=== PATIENT | male | born 1960 | race African-American/Black ===

== ENCOUNTER 2020-03-26 21:30 | Inpatient (IN) | payer SELFPAY ==
[2020-03-26] MEDS ORDERED: Vancomycin 1 GM/200 ML BAG ONE (21:52)
[2020-03-26 22:30] LABS: ALT (SGPT) 16 U/L (8-55); AST (SGOT) 26 U/L (5-34); Albumin 3.4 g/dL (3.5-5.0); Alkaline Phosphatase 43 U/L (40-110); Anion Gap 13 mmol/L (10-20); BUN (Urea Nitrogen) 23 mg/dL (8.4-25.7); Bilirubin, Total 0.5 mg/dL (0.2-1.2); Calc. Creatinine Clearance 0 mL/min (70-130); Calcium 8.1 mg/dL (7.8-10.44); Carbon Dioxide 21 mmol/L (22-29); Chloride 115 mmol/L (98-107); Globulin 2.8 g/dL (2.4-3.5); Glucose 261 mg/dL (70-105); Protein, Total 6.2 g/dL (6.0-8.3); Sodium 145 mmol/L (136-145)
[2020-03-27 00:54] VITALS: BMI 32.8
[2020-03-27] MEDS ORDERED: Acetaminophen 650 MG Suppository PR PRN (01:28)
[2020-03-27] MEDS ORDERED: Acetaminophen 325 MG TAB PO PRN (01:28)
[2020-03-27] MEDS ORDERED: Dextrose 50% Abboject 50 ML SYRINGE SLOW IVP PRN (01:48)
[2020-03-27] MEDS ORDERED: Dextrose 5% in Water 1,000 ML IV PRN (01:48)
[2020-03-27] MEDS: Lactated Ringer's 1,000 ML IV SCH ×2 (02:01→09:08)
--- NOTE | 2020-03-27 02:22 | PDOC.HHP ---
Hospitalist HPI History of Present Illness: ADMISSION DATE: 03/27/2020 TIME OF ASSESSMENT: 0100 PRIMARY CARE PHYSICIAN: CHIEF COMPLAINT: Generalized weakness and lightheadedness HPI: This is a 60-year-old gentleman who presented to [place] ER the evening on 03/25/2020, with complaints of feeling lightheaded. He states his glucose at home was unusually high and red over 500. He took insulin and it decreased to the 300s however he continued to feel lightheaded when standing and walking to the bathroom and therefore his family called EMS. Per outside ED reports the patient was found to be orthostatic as well as tachycardic by EMS and was given IV fluids. On arrival to the ER in [place] he was noted to be hypotensive with his blood pressure being as low as 85/63. He was afebrile and tachycardic with a heart rate ranging from 102 to 123. Laboratory studies done showed a white count of 10.8, hemoglobin 12.3, hematocrit 39.6, platelets 126, neutrophils 73.1%. Sodium 142, potassium 4, BUN 28, creatinine 1.67, GFR 51, glucose 246, calcium 7.8, LFTs normal, CK 531, lipase normal. He received IV hydration with a bolus of normal saline x3 L and was started on a continuous infusion of normal saline at 100 mL/h and was started on IV antibiotics with cefepime 2 g IV as well as vancomycin 2 g IV. Hyperglycemia was treated with Lantus. Covid testing was negative. He also had a urinalysis done which showed clear appearing urine with 15 ketones, greater than 1000 glucose, moderate bilirubin of than otherwise unremarkable. He was then transferred here for further work-up and management of sepsis from unknown source. He had a chest x-ray done which demonstrated no abnormalities. ED COURSE: On arrival to the emergency department here the patient had a low- grade temperature of 99.1, HR 88, BP 111/83, O2 sat 97% on room air with the rest rate of 73. He received an additional dose of vancomycin. Allergies/Adverse Reactions: Allergy/AdvReac Type Severity Reaction Status Date / Time No Known Drug Allergies Allergy Verified 04/28/19 14:49 Home Medications: Medication Instructions Recorded Confirmed Type Insulin Aspart [NovoLOG FlexPen] 5 unit SC AC 01/20/14 03/27/20 History Lovastatin 20 mg PO QPM-WM 01/20/14 03/27/20 History Lisinopril 2.5 mg PO DAILY #0 01/21/14 03/27/20 Rx Canagliflozin [Invokana] 100 mg PO DAILY 03/27/20 03/27/20 History Insulin Detemir [Levemir FlexTouch] 60 unit SC QAM 03/27/20 03/27/20 History sitaGLIPtin Phosphate [Januvia] 100 mg PO DAILY 03/27/20 03/27/20 History Past History: PAST MEDICAL HISTORY: 1. Diabetes mellitus 2. Hyperlipidemia 3. Hypertension PAST SURGICAL HISTORY: None SOCIAL HISTORY: He states he lives at home with his family. Denies any alcohol consumption or drug use. He does not smoke cigarettes but will occasionally dip. FAMILY HISTORY: Noncontributory Hospitalist HPI ROS Constitutional: reports: weakness (generalized weakness has resolved), malaise (has resolved after IV fluids given prior to transfer), other (Has had decreased appetite the last few days with decreased PO intake). denies: fever, chills, sweats ENT: denies: ear pain, ear discharge, nose pain, nose discharge, nose congestion, mouth pain, mouth swelling, throat pain, throat swelling, other Respiratory: denies: cough, dry, shortness of breath, hemoptysis, SOB with excertion, pleuritic pain, sputum, wheezing, other Cardiovascular: denies: chest pain, palpitations, orthopnea, paroxysmal noc. dyspnea, edema, light headedness, other Gastrointestinal: denies: nausea, vomiting, abdominal pain, diarrhea, constipation, melena, hematochezia, other Genitourinary: denies: dysuria, frequency, incontinence, hematuria, retention, other Musculoskeletal: denies: neck pain, shoulder pain, arm pain, back pain, hand pain, leg pain, foot pain, other Skin: denies: rash, lesions, noelle, bruising, other Hospitalist Exam Vitals: Vital Signs (12 hours) Temp Pulse Resp BP Pulse Ox 03/26/20 23:39 98.5 F 86 18 134/78 98 Weight Weight 209 lb 9.6 oz General Appearance: NAD, awake alert Eye: PERRL, anicteric sclera ENT: normocephalic atraumatic, no oropharyngeal lesions Neck: supple, no lymphadenopathy Heart: RRR, normal peripheral pulses Respiratory: CTAB, no wheezes, no rales, no ronchi, normal chest expansion Gastrointestinal: soft, non-tender, non-distended, normal bowel sounds Extremities: no edema Skin: no lesions, no rashes, tenting Skin - other findings: no infected wounds or cellulitis Neurological: cranial nerve grossly intact, normal sensation to touch, no weakness Musculoskeletal: normal tone, normal strength, no muscle wasting Psychiatric: normal affect, normal behavior, A&O x 3 Hospitalist Results Result Diagrams: 03/27/20 02:02 Lab results: Laboratory Last Values Sodium 145 mmol/L (136-145) 03/26/20 21:59 Potassium 4.0 mmol/L (3.5-5.1) 03/26/20 21:59 Chloride 115 mmol/L (98-107) H 03/26/20 21:59 Carbon Dioxide 21 mmol/L (22-29) L 03/26/20 21:59 Anion Gap 13 mmol/L (10-20) 03/26/20 21:59 BUN 23 mg/dL (8.4-25.7) 03/26/20 21:59 Creatinine 1.61 mg/dL (0.7-1.3) H 03/26/20 21:59 Estimated GFR (MDRD) 54 03/26/20 21:59 Glucose 261 mg/dL (70-105) H 03/26/20 21:59 POC Glucose 68 mg/dL (70-100) L 03/27/20 00:57 Serum Osmolality 321 mOsm/kg (280-295) H 03/26/20 21:59 Calcium 8.1 mg/dL (7.8-10.44) 03/26/20 21:59 Total Bilirubin 0.5 mg/dL (0.2-1.2) 03/26/20 21:59 AST 26 U/L (5-34) 03/26/20 21:59 ALT 16 U/L (8-55) 03/26/20 21:59 Alkaline Phosphatase 43 U/L (40-110) 03/26/20 21:59 Serum Total Protein 6.2 g/dL (6.0-8.3) 03/26/20 21:59 Albumin 3.4 g/dL (3.5-5.0) L 03/26/20 21:59 Globulin 2.8 g/dL (2.4-3.5) 03/26/20 21:59 Albumin/Globulin Ratio 1.2 g/dL (1.2-2.2) 03/26/20 21:59 Chest x-ray Status: report reviewed by mo Hospitalist H&P A/P (1) Generalized weakness Code(s): R53.1 - WEAKNESS Status: Acute (2) Dehydration Code(s): E86.0 - DEHYDRATION Status: Acute (3) Diabetes mellitus Code(s): E11.9 - TYPE 2 DIABETES MELLITUS WITHOUT COMPLICATIONS Status: Acute (4) Rhabdomyolysis Code(s): M62.82 - RHABDOMYOLYSIS Status: Acute (5) Hypertension Code(s): I10 - ESSENTIAL (PRIMARY) HYPERTENSION Status: Chronic (6) Hyperlipidemia Code(s): E78.5 - HYPERLIPIDEMIA, UNSPECIFIED Status: Chronic Plan: Patient presented with decreased PO intake with generalized weakness and hyp erglycemia. Reports feeling worn-out/lightheaded when ambulating at home. His symptoms have resolved significantly after fluids were given and elevated glucose was treated. Denies any s/s of infection but sepsis suspected due to hypotension/tachycardia. Patient with normal WCC and remained afebrile. UA and CXR negative at outside ER. Blood cultures pending. S/p Cefepime and Vanc. Will continue with the following: Test for Flu A/B Blood cultures pending No source of infection identified however will continue antibiotics until blood cultures result Continue gentle hydration Monitor renal function Avoid nephrotoxic meds Monitor glucose, Accu-cheks ACHS ISS initiated Will obtain CBC/CMP/Lactic acid/Mg+, repeat CK Orthostatic BPs PT/OT consulted GI Prophylaxis with Famotidine DVT Prophylaxis with mechanical SCDs CODE STATUS FULL
[2020-03-27 02:27] LABS: Lactic Acid 1.9 mmol/L (0.5-2.2)
[2020-03-27 02:31] LABS: ALT (SGPT) 14 U/L (8-55); AST (SGOT) 26 U/L (5-34); Albumin 3.2 g/dL (3.5-5.0); Alkaline Phosphatase 38 U/L (40-110); Anion Gap 11 mmol/L (10-20); BUN (Urea Nitrogen) 22 mg/dL (8.4-25.7); Bilirubin, Total 0.6 mg/dL (0.2-1.2); Calc. Creatinine Clearance 79 mL/min (70-130); Calcium 8.2 mg/dL (7.8-10.44); Carbon Dioxide 24 mmol/L (22-29); Chloride 114 mmol/L (98-107); Globulin 2.7 g/dL (2.4-3.5); Glucose 127 mg/dL (70-105); Potassium 3.8 mmol/L (3.5-5.1); Protein, Total 5.9 g/dL (6.0-8.3); Sodium 145 mmol/L (136-145)
[2020-03-27 02:36] LABS: #Basophils 0.1 thou/uL (0.0-0.2); #Eosinphils 0.2 thou/uL (0.0-0.7); #Lymphocytes 2.3 thou/uL (1.20-3.40); #Monocytes 0.7 thou/uL (0.11-0.59); #Neutrophils 3.9 thou/uL (1.40-6.50); %Basophils 0.8 % (0.0-1.0); %Eosinophils 2.9 % (0.0-10.0); %Lymphocytes 31.9 % (21.0-51.0); %Monocytes 9.5 % (0.0-10.0); Mean Corpuscular HGB CONC 32.5 g/dL (32.0-36.0); Mean Corpuscular Volume 79.9 fL (78.0-98.0); Mean Platelet Volume 10.8 fL (7.4-10.4); Platelet Count 100 thou/uL (130-400); RBC Distribution Width 12.5 % (11.5-14.5); Red Blood Cell (RBC) Count 4.61 mill/uL (4.70-6.10); White Blood Cell (WBC) Count 7.1 thou/uL (4.8-10.8)
[2020-03-27] MEDS ORDERED: Cefepime 2 GM in Sodium Chloride 0.9% 100 ML IVPB SCH (06:00)
[2020-03-27] MEDS ORDERED: Vancomycin 1 GM in Premix Bag 1 BAG IVPB SCH (06:00)
[2020-03-27] MEDS ORDERED: VANCOMYCIN 1.25 GM/250 ML BAG 1.25 GM in Premix Bag 1 BAG IVPB SCH (09:00)
[2020-03-27 10:55] LABS: Hemoglobin A1c 8.9 % (4.0-6.0)
[2020-03-27] MEDS: HumaLOG 300 UNITS/3 ML VIAL SC PRN ×2 (12:18→21:49)
--- NOTE | 2020-03-27 16:18 | PDOC.HOSPP ---
- Subjective Encounter Date: 03/27/20 Encounter Time: 11:00 Subjective: F/u : hyperglycemia The patient had a blood sugar of 500 last night. He states he takes 60 units lantus at noon and 9 units at night. He didn't take his lantus at noon yesterday but got it at [place] last night THis morning his blood sugar was 39 Blood cultures are preliminarily negative - Objective Vital Signs & Weight: Vital Signs (12 hours) Temp Pulse Resp BP BP BP BP 03/27/20 11:00 98.7 F 77 20 130/85 03/27/20 08:00 81 129/81 136/83 03/27/20 07:32 97.9 F 86 18 121/80 03/27/20 05:38 97.1 F L 79 18 139/83 Pulse Ox 03/27/20 11:00 99 03/27/20 08:00 03/27/20 07:32 98 03/27/20 05:38 95 Weight Weight 209 lb 9.6 oz I&O: 03/26/20 03/27/20 03/28/20 06:59 06:59 06:59 Intake Total 960 Balance 960 Result Diagrams: 03/27/20 02:02 03/27/20 02:02 Additional Labs: Accuchecks 03/27/20 03/27/20 03/27/20 11:36 05:41 05:02 POC Glucose 250 H 155 H 38 L* 03/27/20 03/26/20 00:57 21:57 POC Glucose 68 L 244 H Hospitalist ROS - Review of Systems Constitutional: denies: fever, chills - Medication Medications: Active Medications Generic Name Dose Route Start Last Admin Trade Name Freq PRN Reason Stop Dose Admin Dextrose/Water 25 gm 03/27/20 01:48 03/27/20 05:12 Dextrose 50% Abboject 50 Ml Syringe SLOW IVP 25 gm PRN PRN Administration Hypoglycemia Vancomycin HCl 1.25 gm/ Device 250 mls @ 166.667 mls/hr 03/27/20 09:00 03/27/20 09:07 IVPB 250 mls Q12HR VERONIKA Administration Insulin Human Lispro 0 units 03/27/20 01:48 03/27/20 12:18 Humalog 300 Units/3 Ml Vial SC 3 units .MILD SLIDING SCALE PRN Administration Mild Correctional Scale Hospitalist Exam Vitals: Vital Signs (12 hours) Temp Pulse Resp BP BP BP BP 03/27/20 11:00 98.7 F 77 20 130/85 03/27/20 08:00 81 129/81 136/83 03/27/20 07:32 97.9 F 86 18 121/80 03/27/20 05:38 97.1 F L 79 18 139/83 Pulse Ox 03/27/20 11:00 99 03/27/20 08:00 03/27/20 07:32 98 03/27/20 05:38 95 Weight Weight 209 lb 9.6 oz General Appearance: NAD, awake alert Eye: PERRL, anicteric sclera ENT: normocephalic atraumatic, no oropharyngeal lesions Neck: no JVD Heart: RRR, no murmur, no gallops, no rubs Respiratory: CTAB, no wheezes, no rales, no ronchi Gastrointestinal: soft, non-tender, non-distended, normal bowel sounds Extremities: no cyanosis, no clubbing, no edema Skin: normal turgor, no lesions, no rashes Neurological: cranial nerve grossly intact, normal sensation to touch, no weakness Musculoskeletal: normal tone, normal strength, no muscle wasting Psychiatric: normal affect, normal behavior, A&O x 3, oriented to person Hosp A/P - Plan This is a 60 year old male with diabetes who persented to the hospital with lightheadedness. His blood sugar was 500 but didn't improve with insulin so he came to the ER. He was found to have a creatinine of 1.61. He was admitted with IV fluids #Hypoglycemia #Type II DM - blood sugar 39 after receiving 60 units lantus last night. Resumed sliding scale. Will calculate how much insulin patient needs to get tonight if any #VALDEZ #Hypotension - will hold lisinopril. Creatinine improved to 1.3. Blood cultures prelim negative, chest X ray and UA negative. Will d/c vanc and cefepime #Anemia - Hb 12, will monitor
[2020-03-28] MEDS: HumaLOG 300 UNITS/3 ML VIAL SC PRN ×4 (05:59→20:27)
[2020-03-28 08:21] LABS: Vancomycin, Trough 8.7 ug/mL
[2020-03-28] MEDS: Insulin Glargine 11 UNITS in Pre-Filled Syringe 1 EACH SC SCH (08:53)
[2020-03-28] MEDS ORDERED: HumaLOG 300 UNITS/3 ML VIAL SC PRN (17:48)
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
[2020-03-28] MEDS ORDERED: Insulin Glargine 8 UNITS in Pre-Filled Syringe 1 EACH SC SCH (21:00)
[2020-03-29 07:37] LABS: Anion Gap 13 mmol/L (10-20); BUN (Urea Nitrogen) 20 mg/dL (8.4-25.7); Calc. Creatinine Clearance 91 mL/min (70-130); Calcium 9.3 mg/dL (7.8-10.44); Carbon Dioxide 27 mmol/L (22-29); Chloride 100 mmol/L (98-107); Glucose 319 mg/dL (70-105); Potassium 4.4 mmol/L (3.5-5.1); Sodium 136 mmol/L (136-145)
[2020-03-29 07:39] LABS: Hemoglobin 13.7 g/dL (14.0-18.0); Mean Corpuscular HGB CONC 32.6 g/dL (32.0-36.0); Mean Corpuscular Hemoglobin 26.2 pg (27.0-31.0); Mean Corpuscular Volume 80.3 fL (78.0-98.0); Mean Platelet Volume 11.8 fL (7.4-10.4); Platelet Count 86 thou/uL (130-400); RBC Distribution Width 12.4 % (11.5-14.5); Red Blood Cell (RBC) Count 5.23 mill/uL (4.70-6.10); White Blood Cell (WBC) Count 5.5 thou/uL (4.8-10.8)
[2020-03-29] MEDS ORDERED: Alogliptin 25 MG TAB PO SCH (09:00)
[2020-03-29] MEDS ORDERED: Empagliflozin 10 MG TAB PO SCH (09:00)
[2020-03-29] MEDS: Insulin Glargine 11 UNITS in Pre-Filled Syringe 1 EACH SC SCH (09:12)
--- NOTE | 2020-03-29 09:41 | PDOC.DS.DS ---
Provider Date of Admission: 03/26/20 22:58 Date of Discharge: 03/29/20 Admitting Provider: Marty Sorenson MD Primary Care Physician: OUT OF TOWN Course Hospital Course: Discharge diagnosis: 1. Acute kidney injury 2. Hypoglycemic episodes 3. Hypotension, most likely secondary to poor nutrition Hospital course: Patient is a pleasant 60-year-old gentleman who was admitted to the hospital on March 27, 2020 for hypotension. Patient presented to the emergency room with high blood sugars and received insulin in the ER. He subsequently had hypoglycemic episode. His insulin dose has been decreased. Lisinopril was also on hold because of hypotension. Patient continued to improve clinically. He has been advised to check his blood pressure, heart rate and blood sugar 3 times a day and shows readings to his primary care provider. Many thanks for allowing me to participate in your patient's care. Please feel free to contact me with any questions or concerns. Discharge destination: Home Total amount of time spent coordinating this discharge: 32 minutes Resuscitation Status: 03/27/20 01:28 Resuscitation Status Routine Co-Sign Provider: Resuscitation Status: FULL: Full Resuscitation Lab Results: 03/29/20 06:41 03/29/20 06:41 Abnormal Lab Results - Last 48 hrs 03/27/20 02:02: Hemoglobin A1c 8.9 H 03/29/20 06:41: Hgb 13.7 L, MCH 26.2 L, Plt Count 86 L, MPV 11.8 H Vitals: Vital Signs (12 hours) Temp Pulse Resp BP BP BP Pulse Ox 03/29/20 07:39 97.9 F 82 16 103/72 83/59 L 121/77 98 Weight Weight 209 lb 9.6 oz Physical Exam: The patient was seen and examined on the day of discharge. Patient denies chest pain or shortness of breath. Vital signs are stable. S1 and S2 are heard. Lungs are clear to auscultation bilaterally. Plan Prescriptions: Insulin Detemir [Levemir Flextouch] 11 unit SQ QAM #1 insuln.pen Insulin Detemir [Levemir Flextouch] 8 unit SQ HS #1 ml Home Medications: Medication Instructions Recorded Confirmed Type Insulin Aspart [NovoLOG FlexPen] 5 unit SC AC 01/20/14 03/27/20 History Lovastatin 20 mg PO QPM-WM 01/20/14 03/27/20 History Canagliflozin [Invokana] 100 mg PO DAILY 03/27/20 03/27/20 History sitaGLIPtin Phosphate [Januvia] 100 mg PO DAILY 03/27/20 03/27/20 History Insulin Detemir [Levemir Flextouch] 8 unit SQ HS #1 ml 03/29/20 Rx Insulin Detemir [Levemir Flextouch] 11 unit SQ QAM #1 insuln.pen 03/29/20 Rx Allergies: No Known Drug Allergies Allergy (Verified 04/28/19 14:49) Discharge Instructions:: Check your blood sugars, blood pressure and heart rate 3 times a day and shows readings to your primary care provider. Primary care provider to decide about restarting lisinopril. Nourishment:: Diabetic Diet, Heart Healthy Diet Referrals: [facility]OUT OF [Primary Care Provider] - 3 Days Disposition: HOME Quality CORE MEASURES:: N/A
[2020-03-29] MEDS: HumaLOG 300 UNITS/3 ML VIAL SC PRN (11:34)
[2020-03-29 12:00] VITALS: BP 119/80; TEMP 98
--- NOTE | 2020-03-31 04:39 | PQF ---
CLINICAL DOCUMENTATION CLARIFICATION FORM: Dear : Arnulfo Vargas Date / Time: 03/31/20 04:38 Please exercise your independent, professional judgment in responding to the clarification form. Clinical indicators are provided on the bottom of this form for your review Please check appropriate box(es): [ ] Sepsis [ ] Severe Sepsis with acute organ dysfunction of VALDEZ [ x ] No sepsis [ ] Other diagnosis, please specify [ ] Unable to determine Physician Signature: Date/Time: For continuity of documentation, please document condition throughout progress notes and discharge summary. Thank You To be completed by CDI/Coding staff for physician review: Present Clinical Indicators - Signs / Symptoms / Labs Results and Location in Medical Record [x] Sepsis without source ED Notes 03/26 [x] VALDEZ DS 03/29 [x] Hypotension PN 03/28 [x] Denies any s/s of infection but sepsis suspected due to hypotension/tachycardia HP 03/27 [x] Temp=98.5 Pulse=86 Respi=18 SG=472/78 VS 03/26 [x] WBC: 03/27=7.1 03/29=5.5 Laboratory 03/27 [x] Lactic Acid: 03/27=1.9 Laboratory 03/27 Present Risk Factors Results and Location in Medical Record [x] DM PN 03/28 [x] Dehydration HP 03/27 Present Treatments Results and Location in Medical Record [x] Sepsis protocol initiated ED Notes 03/26 [x] Vancomycin 1gm IV APR 08 [x] IVF APR 08 [x] Cefepime 2gm IV APR 08 CDS/Benefits Sales Consultant Signature: Michele Gaxiola Phone #: [phone] Date/Time: 03/31/20 This is a permanent part of the Medical Record [facility]
--- NOTE | 2020-03-31 04:41 | PQF ---
CLINICAL DOCUMENTATION CLARIFICATION FORM: Dear : Arnulfo Vargas Date / Time: 03/31/20 04:41 Please exercise your independent, professional judgment in responding to the clarification form. Clinical indicators are provided on the bottom of this form for your review Please check appropriate box(s): [ x ] Hypovolemic Shock [ ] Septic Shock [ ] Shock Unspecified [ ] Other diagnosis, please specify [ ] Unable to determine In addition, please specify: Present on Admission (POA): [ x ] Yes [ ] No [ ] Unable to determine Physician Signature: Date/Time: For continuity of documentation, please document condition throughout progress notes and discharge summary. Thank You. To be completed by CDI/Coding staff for physician review: Present Clinical Indicators - Signs / Symptoms / Labs Results and Location in Medical Record [x] Hypotension PN 03/28 [x] Sepsis without source ED Notes 03/26 [x] Denies any s/s of infection but sepsis suspected due to hypotension/tachycardia HP 03/27 [x] Lactic Acid: 03/27=1.9 Laboratory 03/27 [x] Generalized weakness and lightheadedness HP 03/27 [x] BP: 03/27= 128/77 03/29=83/59 Laboratory 03/27 Present Risk Factors Results and Location in Medical Record [x] DM PN 03/28 [x] Dehydration HP 03/27 [x] VALDEZ DS 03/29 Present Treatments Results and Location in Medical Record [x] Vancomycin 1gm IV APR 08 [x] IVF APR 08 [x] Cefepime 2gm IV APR 08 CDS/Lemon Grower Signature: Michele Gaxiola Phone #: ext [phone] Date/Time: 03/31/20 This is a permanent part of the Medical Record [facility]
== END 2020-03-29 12:42 | disposition home or self-care (01) | DRG 682 ==
LOC: ERS 21:30 → ERHOLD 22:58 → OBSVTOIN 22:58 → T4-A 03-27 00:43
PROVIDERS: ADMIT Student in an Organized Health Care Education/Training Program; ATTEND Internal Medicine
DX: N17.9 Acute kidney failure, unspecified (principal); R57.1 Hypovolemic shock; M62.82 Rhabdomyolysis; E11.65 Type 2 diabetes mellitus with hyperglycemia; E11.649 Type 2 diabetes mellitus with hypoglycemia without coma; E78.5 Hyperlipidemia, unspecified; I10 Essential (primary) hypertension; E86.0 Dehydration; D64.9 Anemia, unspecified; Z79.4 Long term (current) use of insulin; Z23 Encounter for immunization
CPT/HCPCS: 36415; 36416; 80048; 80053; 80202; 82565; 83036; 83605; 83735; 83930; 85025; 85027; 90471; 90732; 96365; 96375; 96376; G0009; G0378; J0692; J1815; J3370; J3490

== ENCOUNTER 2020-05-03 14:40 | Emergency (ER) | payer OTHER, SELFPAY ==
[2020-05-03] MEDS ORDERED: Dexamethasone 4 mg/ml Vial ONE (15:16)
== END 2020-05-03 15:25 | disposition home or self-care (01) ==
LOC: ERS 14:40
DX: M54.41 Lumbago with sciatica, right side (principal); E11.9 Type 2 diabetes mellitus without complications; E78.5 Hyperlipidemia, unspecified; E78.00 Pure hypercholesterolemia, unspecified; I10 Essential (primary) hypertension; F17.220 Nicotine dependence, chewing tobacco, uncomplicated; Z79.4 Long term (current) use of insulin; Z79.899 Other long term (current) drug therapy
CPT/HCPCS: 99283; J1100

== ENCOUNTER 2023-06-29 00:36 | Inpatient (IN) | payer SELFPAY ==
[2023-06-29 01:28] LABS: Actual Bicarbonate (HCO3v) 17.6 mEq/L (22-28); Calcium, Ionized (venous) 1.28 mmol/L (1.16-1.32); Chloride (VBG) 112 mmol/L (98-106); Hematocrit-VBG 46 % (42.0-52.0); Hemoglobin (Hb) 15.5 g/dL (13.1-17.2); Potassium (VBG) 4.67 mmol/L (3.70-5.30); Sodium 150 mmol/L (133-146); pH (venous) 7.297 (7.32-7.43)
[2023-06-29 01:42] LABS: #Basophils 0.07 10x3/uL (0.0-0.2); #Eosinphils Less than 0.03 10x3/uL (0.0-0.7); %Basophils 0.7 % (0.0-1.0); %Lymphocytes 20.6 % (21.0-51.0); %Monocytes 9.1 % (0.0-10.0); %Neutrophils 69.3 % (42.0-75.0); Hematocrit 45.7 % (42.0-52.0); Hemoglobin 14.6 g/dL (14.0-18.0); Mean Corpuscular HGB CONC 31.9 g/dL (32.0-36.0); Mean Corpuscular Hemoglobin 24.8 pg (27.0-31.0); Mean Corpuscular Volume 77.6 fL (78.0-98.0); Platelet Count 136 10x3/uL (130-400); Red Blood Cell (RBC) Count 5.89 mill/uL (4.70-6.10)
[2023-06-29 01:52] LABS: Troponin I 0.011 ng/mL (< 0.028)
[2023-06-29 01:54] LABS: ALT (SGPT) 12 U/L (8-55); AST (SGOT) 10 U/L (5-34); Albumin 3.6 g/dL (3.4-4.8); Alkaline Phosphatase 50 U/L (40-110); Anion Gap 21 mmol/L (10-20); BUN (Urea Nitrogen) 62 mg/dL (8.4-25.7); Bilirubin, Total 0.8 mg/dL (0.2-1.2); Calc. Creatinine Clearance 0 mL/min (70-130); Carbon Dioxide 17 mmol/L (23-31); Chloride 116 mmol/L (98-107); Estimated GFR 28; Globulin 3.6 g/dL (2.4-3.5); Glucose 102 mg/dL (80-115); Lipase 16 U/L (8-78); Potassium 4.7 mmol/L (3.5-5.1); Protein, Total 7.2 g/dL (5.8-8.1); Sodium 149 mmol/L (136-145)
[2023-06-29] MEDS ORDERED: Dextrose 5 %-0.45 % NaCl 1,000 ML IV PRN (02:36)
[2023-06-29] MEDS ORDERED: NS 0.9% w/ 20 MEQ KCL 1,000 ML IV PRN ×2 (02:36)
[2023-06-29] MEDS ORDERED: Electrolyte Replacement Protocol 1 EACH IVPB SCH (02:36)
[2023-06-29] MEDS ORDERED: Acetaminophen 325 MG TAB PO PRN (02:36)
[2023-06-29] MEDS ORDERED: Sodium Chloride 0.9% 1,000 ML IV PRN ×4 (02:36)
[2023-06-29] MEDS ORDERED: Insulin Reg, Human 100 UNITS in Sodium Chloride 0.9% 100 ML IVPB SCH (02:45)
[2023-06-29] MEDS: D5 1/2 NS w/20 mEq KCL 1,000 ML IV PRN (04:33)
[2023-06-29] MEDS: Dextrose 50% Abboject 50 ML SYRINGE SLOW IVP PRN (04:38)
[2023-06-29 04:58] VITALS: BMI 32.6
[2023-06-29 07:01] LABS: Hemoglobin A1c 8.8 % (4.0-6.0)
[2023-06-29 07:12] LABS: Anion Gap 17 mmol/L (10-20); BUN (Urea Nitrogen) 52 mg/dL (8.4-25.7); Calc. Creatinine Clearance 47 mL/min (70-130); Calcium 8.8 mg/dL (7.8-10.44); Carbon Dioxide 18 mmol/L (23-31); Chloride 116 mmol/L (98-107); Estimated GFR 34; Glucose 182 mg/dL (80-115); Potassium 4.4 mmol/L (3.5-5.1); Sodium 147 mmol/L (136-145)
[2023-06-29] MEDS: Enoxaparin 40 MG (0.4 mL) SYRINGE SC SCH (09:01)
[2023-06-29] MEDS ORDERED: Glucagon 1 MG/ML KIT IM PRN (09:30)
[2023-06-29] MEDS ORDERED: HumaLOG 300 UNITS/3 ML VIAL SC PRN ×2 (09:30)
[2023-06-29] MEDS ORDERED: Dextrose 5% in Water 1,000 ML IV PRN (09:30)
[2023-06-29] MEDS: Insulin Glargine 30 UNITS/0.3 ML VIAL SC SCH (09:40)
[2023-06-29] MEDS: Lactated Ringer's 1,000 ML IV SCH (11:43)
[2023-06-29] MEDS: HumaLOG 300 UNITS/3 ML VIAL SC SCH (12:39)
[2023-06-29] MEDS: Amlodipine 10 MG TAB PO SCH (12:39)
[2023-06-30] MEDS: Amlodipine 5 MG TAB PO SCH (08:30)
[2023-06-30 10:22] LABS: Anion Gap 10 mmol/L (10-20); BUN (Urea Nitrogen) 24 mg/dL (8.4-25.7); Calc. Creatinine Clearance 84 mL/min (70-130); Calcium 8.7 mg/dL (7.8-10.44); Carbon Dioxide 25 mmol/L (23-31); Chloride 112 mmol/L (98-107); Estimated GFR 64; Glucose 209 mg/dL (80-115); Potassium 3.8 mmol/L (3.5-5.1); Sodium 143 mmol/L (136-145)
[2023-07-01 06:44] LABS: Anion Gap 11 mmol/L (10-20); BUN (Urea Nitrogen) 16 mg/dL (8.4-25.7); Calc. Creatinine Clearance 96 mL/min (70-130); Calcium 9.1 mg/dL (7.8-10.44); Carbon Dioxide 29 mmol/L (23-31); Chloride 108 mmol/L (98-107); Estimated GFR 76; Glucose 139 mg/dL (80-115); Potassium 4.1 mmol/L (3.5-5.1); Sodium 144 mmol/L (136-145)
[2023-07-01 08:41] VITALS: BP 119/70; TEMP 98.7
== END 2023-07-01 09:05 | disposition home or self-care (01) | DRG 682 ==
LOC: ERS 00:36 → IMCU/EMU 02:23 → T4-A 12:30
PROVIDERS: ADMIT Emergency Medicine; ATTEND Emergency Medicine
DX: N17.9 Acute kidney failure, unspecified (principal); E10.10 Type 1 diabetes mellitus with ketoacidosis without coma; E78.5 Hyperlipidemia, unspecified; F17.220 Nicotine dependence, chewing tobacco, uncomplicated; Z79.899 Other long term (current) drug therapy; Z79.4 Long term (current) use of insulin; I12.9 Hypertensive chronic kidney disease with stage 1 through stage 4 chronic kidney disease, or unspecified chronic kidney disease; E87.6 Hypokalemia; N18.31 Chronic kidney disease, stage 3a; E10.22 Type 1 diabetes mellitus with diabetic chronic kidney disease
CPT/HCPCS: 36415; 36416; 71045; 80048; 80053; 82010; 82805; 83036; 83690; 83880; 84484; 85025; 87040; 93005; J1650; J1815; J3480; J7120; J7999